=== PATIENT | male | born 1940 | race Caucasian/White ===

== ENCOUNTER 2024-08-10 11:54 | Emergency (ER) | payer MEDICARE, BC | END 2024-08-10 13:30 | disposition home or self-care (01) | LOC: CSHERS 11:54 | DX: B34.9 Viral infection, unspecified (principal); I10 Essential (primary) hypertension; Z87.891 Personal history of nicotine dependence | CPT/HCPCS: 71046; 87428 ==

== ENCOUNTER 2025-04-10 08:01 | Emergency (ER) | payer MEDICARE, BC ==
[2025-04-10 08:53] LABS: #Basophils Less than 0.03 10x3/uL (0.0-0.2); #Eosinophils 0.18 10x3/uL (0.0-0.5); #Monocytes 0.44 10x3/uL (0.0-1.1); #Neutrophils 2.16 10x3/uL (1.5-8.4); %Basophils 0.2 % (0.0-2.0); %Eosinophils 3.7 % (0.0-6.0); %Lymphocytes 43.0 % (18.0-47.0); %Monocytes 9.0 % (0.0-10.0); %Neutrophils 43.9 % (40.0-75.0); ALT (SGPT) 31 U/L (Less than 45); AST (SGOT) 27 U/L (11-34); Albumin 4.3 g/dL (3.1-4.5); Alkaline Phosphatase 72 U/L (40-110); Anion Gap 14 mmol/L (10-20); BUN (Urea Nitrogen) 18 mg/dL (8.4-25.7); Bilirubin, Total 0.8 mg/dL (0.3-1.2); Calc. Creatinine Clearance 0 mL/min (70-130); Calcium 9.7 mg/dL (7.8-10.44); Carbon Dioxide 27 mmol/L (23-31); Chloride 105 mmol/L (98-107); Globulin 3.0 g/dL (2.4-3.5); Glucose 95 mg/dL (83-110); Hematocrit 44.9 % (38.8-50.0); Hemoglobin 15.2 g/dL (13.5-17.5); Mean Corpuscular Hemoglobin 33.4 pg (27.0-33.0); Mean Corpuscular Volume 98.7 fL (81.2-95.1); Potassium 3.8 mmol/L (3.5-5.1); Red Blood Cell (RBC) Count 4.55 10x6/uL (4.32-5.72); Sodium 142 mmol/L (136-145); White Blood Cell (WBC) Count 4.91 10x3/uL (3.5-10.5)
[2025-04-10 08:54] LABS: Platelet Count 80 10x3/uL (130-400)
[2025-04-10 08:55] LABS: Crenated RBC SLIGHT = 1-5 cells (100X) (None Seen)
[2025-04-10 08:56] LABS: Platelet Adequacy Comment Appears Decreased
[2025-04-10 09:09] LABS: Glucose, Urine (Dipstick) Normal (Negative); Leukocyte Negative (Negative); Protein, Urine (Dipstick) 15 mg/dl (Neg-Trace); Specific Gravity, Urine 1.010 (1.005-1.030)
[2025-04-10 09:17] LABS: Bacteria/HPF 1+ HPF (None Seen); CAUTI Indications for Culture Acute Hematuria; WBC/HPF 0-3 HPF (0-3)
[2025-04-10 09:18] LABS: Urine Culture Reflex No No
[2025-04-10] MEDS ORDERED: cefTRIAXone (ROCEPHIN) 1 GM VIAL ONE (12:04)
== END 2025-04-10 12:54 | disposition home or self-care (01) ==
LOC: CSHERS 08:01
DX: N13.2 Hydronephrosis with renal and ureteral calculous obstruction (principal); I10 Essential (primary) hypertension; Z86.73 Personal history of transient ischemic attack (TIA), and cerebral infarction without residual deficits; Z87.891 Personal history of nicotine dependence
CPT/HCPCS: 74176; 80053; 81001; 83605; 85025; 87086; J0696; 96365